=== PATIENT | female | born 1935 | race Two or more races ===

== ENCOUNTER 2017-11-10 09:03 | Outpatient (CLI) | payer OTHER ==
[~2017-11-10 09:03] MED LIST: JANUVIA; LOPRESSOR HCT 11 TAB PO; METFORMIN HCL500 MG PO; SYNTHROID150 MCG PO; TOPROL XL50 MG; ZANTAC300 MG
== END 2017-11-10 09:08 | disposition home or self-care (01) ==
LOC: SONOGRAMA 09:03
DX: E04.1 Nontoxic single thyroid nodule (principal)